=== PATIENT | male | born 2000 | race Caucasian/White ===

== ENCOUNTER 2019-04-14 21:07 | Emergency (ER) | payer BC ==
[~2019-04-14] VITALS: Ht 170.2 cm; Wt 75.0 kg
[2019-04-14 21:15] VITALS: TEMP 98.7
[2019-04-14 22:12] LABS: BASO % 0.4 % (0.0-2.0); EOS # 0.2 (0.0-0.7); EOS % 1.6 % (0-4.0); GRAN # 6.9 (1.4-6.5); GRAN % 63.6 % (42.2-75.2); HEMATOCRIT 44.5 % (36.0-47.0); HEMOGLOBIN 15.5 g/dl (12.5-16.1); LYMPH # 2.7 (1.2-3.4); MEAN CELL VOLUME 90 fl (80.0-95.0); MEAN CORPUSCULAR HEMOGLOBIN 31 pg (26.0-32.0); MEAN CORPUSCULAR HGB CONC 35 g/dl (33.0-37.0); MEAN PLATELET VOLUME 9.3 fl (7.4-10.4); PLATELET COUNT 206 K/mm3 (130-400); RED BLOOD COUNT 4.94 M/mm3 (4.20-5.60); REDCELL DISTRIBUTION WIDTH-CV 11.9 % (11.5-14.5)
[2019-04-14 22:28] LABS: ALANINE AMINOTRANSFERASE 37 U/L (21-72); ALBUMIN 4.4 gm/dL (3.5-5.0); ALKALINE PHOSPHATASE 111 U/L (50-136); ANION GAP 9 mmol/L (7-16); AST,SGOT 31 U/L (15-37); BILIRUBIN,TOTAL 0.6 mg/dL (0.0-1.0); BLOOD UREA NITROGEN 13 mg/dL (9-20); CALCIUM 9.5 mg/dL (8.4-10.2); CARBON DIOXIDE 27 mmol/L (22-30); CHLORIDE 102 mmol/L (98-107); CREATININE, serum 0.95 (0.66-1.25); GLUCOSE 85 mg/dL (74-106); POTASSIUM 3.7 mmol/L (3.4-5.0); SODIUM 139 mmol/L (137-145); TOTAL PROTEIN 7.2 gm/dL (6.4-8.2)
[2019-04-14 22:32] LABS: C-REACTIVE PROTEIN < 0.5 mg/dL (0.0-0.9)
[2019-04-14] MEDS ORDERED: DOXYCYCLINE HY100 MG PO (22:38)
[2019-04-14 22:52] VITALS: BP 116/68; PULSE 61
== END 2019-04-14 23:08 | disposition home or self-care (01) ==
LOC: COL.ER 21:07
PROVIDERS: Emergency Medicine
DX: L02.211 Cutaneous abscess of abdominal wall (principal); L03.311 Cellulitis of abdominal wall
CPT/HCPCS: J7030